=== PATIENT | male | born 1930 | race Caucasian/White ===

== ENCOUNTER 2021-03-30 07:23 | Inpatient (IN) ==
[2021-03-30 08:25] LABS: Basophils # (auto) 0.02 K/uL (0-0.2); Basophils % (auto) 0.4 %; Eosinophils # (auto) 0.03 K/uL (0-0.5); Eosinophils % (auto) 0.6 %; Hematocrit (blood only) 30.1 % (42-52); Hemoglobin 9.1 g/dL (14.0-18.0); Immature Granulocytes # (auto) 0.01 K/uL (0.00-0.02); Immature Granulocytes % (auto) 0.2 %; Lymphocytes # (auto) 0.86 K/uL (1.2-3.4); Lymphocytes % (auto) 17.7 %; Mean Corpuscular Hemoglobin 26.6 pg (25-34); Mean Corpuscular Hgb Conc 30.2 g/dL (32-36); Mean Platelet Volume 8.5 fL (7.4-10.4); Monocytes # (auto) 0.56 K/uL (0.11-0.59); Monocytes % (auto) 11.5 %; Neutrophils # (auto) 3.38 K/uL (1.4-6.5); Neutrophils % (auto) 69.6 %; Platelet Count 173 K/uL (130-400); RDW Coefficient of Variation 17.6 % (11.5-14.5); RDW Standard Deviation 56.9 fL (36.4-46.3); Red Blood Count 3.42 M/uL (4.7-6.1); White Blood Count 4.86 K/uL (4.8-10.8)
[2021-03-30 08:34] LABS: INR 1.8 (0.9-1.1); Prothrombin Time 17.2 Seconds (9.0-12.0)
--- NOTE | 2021-03-30 08:37 | Emergency Department Note ---
History of Present Illness General Chief complaint: Rectal Bleed Stated complaint: RECTAL BLEEDING Time Seen by Provider: 03/30/21 07:33 History of Present Illness This 89-year-old male presents today with his , for evaluation of a rectal bleed. Patient awoke around 4 AM and had dark bowel movement with bright red blood. He states he had a second bowel movement also with blood about 2 hours later. Because of this, he came to the ED. He states he has had 11 previous rectal bleeds. He states most of them require admission and observation. He states he has had colonoscopies after a few of them. All 11 admissions have been at [facility]. They recently moved to [place] in December to e closer to their daughter. Patient notes that he does have bioprosthetic heart valves x2, that are both bovine. He is sure that he receives IV antibiotics during his admissions as prophylaxis for his valves. His concurs. He otherwise states he feels fine. He denies any fevers or chills. No sweats. No chest pain or shortness of breath. He does not feel weak. No dizziness. He has remained ambulatory. There has been no abdominal trauma. He does have a history of diverticulosis. No other complaints. PCP is Dr. Damon. Home Medications Medication Instructions Recorded Confirmed Type albuterol sulfate 90 mcg/actuation 2 puff INHALATION Q4H PRN g 12/27/20 03/30/21 History aerosol inhaler calcium citrate 250 mg 1 tab PO DAILY tab 12/27/20 03/30/21 History calcium-vitamin D3 5 mcg (200 unit) tablet (Citracal Regular) furosemide 40 mg tablet 80 mg PO DAILY tab 12/27/20 03/30/21 History quinapril 40 mg tablet 20 mg PO DAILY tab 12/27/20 03/30/21 History ferrous gluconate 324 mg (38 mg 324 mg PO DAILY #90 tab 02/26/21 03/30/21 Rx iron) tablet amiodarone 200 mg tablet 200 mg PO DAILY #90 tab 03/12/21 03/30/21 Rx amlodipine 2.5 mg tablet 2.5 mg PO DAILY #90 tab 03/14/21 03/30/21 Rx warfarin 4 mg tablet 4 mg PO .COMPLEX #60 tab 03/26/21 03/30/21 Rx ascorbic acid (vitamin C) 500 mg 500 mg PO DAILY 03/30/21 03/30/21 History tablet (Vitamin C) Allergies Allergy/AdvReac Type Severity Reaction Status Date / Time codeine Allergy Unknown Verified 02/25/21 13:21 Penicillins Allergy Unknown Verified 02/25/21 13:21 phytonadione (vitamin K1) Allergy Verified 02/25/21 13:21 Past Med/Surg History Medical History Anemia Atonic bladder Atonic neurogenic bladder Atrial fibrillation, permanent BPH loc w urin obs/LUTS Cardiomyopathy Chronic combined systolic and diastolic congestive heart failure Complete heart block Edema, unspecified Foot-drop History of diverticulitis History of GI bleed History of nephrolithiasis Hypertension ICD (implantable cardioverter-defibrillator) in place LBBB (left bundle branch block) Lumbar spinal stenosis Lymphedema Melanoma Needs future eval by Dermatology for yearly screen Osteoarthritis Pulmonary fibrosis, postinflammatory Thrombus of left atrial appendage Venous insufficiency Ventricular tachycardia Surgical History H/O hernia repair History of cholecystectomy History of lithotripsy Hx of total knee arthroplasty 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 Family History Mother Cancer Social History Smoking Status: Never smoker Second Hand Exposure: No; Hx Alcohol Use: No Hx Substance Use: No Preferred Language: Hong Konger Communication Ability: Effective Visual Impairment: Limited Hearing Ability: Hard of Hearing 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 Required: No Beliefs That Will Affect Care: None marital status: Current Living Situation: Spouse current occupational status: retired How many Children do You have: 3 Other Information That Helps Us Care for You: No Feels Safe at Home: Yes Safety Concerns: Feels Safe At This Time Childhood Exposure to Second-Hand Smoke: Yes caffeine: No Dental Care, Regularly: Yes Physical Activity Frequency: Does not Exercise Seatbelt Use: always Sunscreen Use: Yes Do you think of yourself as: straight/heterosexual Assistive Devices: Walker Review of Systems A total of 10 systems reviewed and were otherwise negative Physical Exam Vital Signs Vital Signs - 24 hr 03/30/21 07:27 03/30/21 08:16 03/30/21 08:30 Temperature 36.5 C Temperature Source Temporal Artery Scan Pulse Rate 79 70 Pulse Rate [Apical] 70 Pulse Rate from SpO2 Sensor 70 Pulse Rhythm Regular Pulse Strength Normal Respiratory Rate 18 24 17 Respiratory Effort / Characteristics Non-Labored Spontaneous Respiratory Depth Normal Respiratory Pattern Regular Blood Pressure 106/60 107/63 Blood Pressure [Left Arm] 112/70 Blood Pressure Mean 75 77 Blood Pressure Mean [Left Arm] 84 Pulse Oximetry 99 98 96 Oxygen Delivery Method Room Air Room Air Room Air Sepsis Recent Fever Within 48 Hours No Sepsis New/Unexplained Change in Mental Status No Sepsis Action Taken by Nursing No Action Required 03/30/21 09:00 03/30/21 09:30 03/30/21 10:00 Temperature Temperature Source Pulse Rate 70 70 70 Pulse Rate [Apical] Pulse Rate from SpO2 Sensor 69 68 70 Pulse Rhythm Pulse Strength Respiratory Rate 14 15 15 Respiratory Effort / Characteristics Respiratory Depth Respiratory Pattern Blood Pressure 98/64 L 120/71 117/72 Blood Pressure [Left Arm] Blood Pressure Mean 75 87 87 Blood Pressure Mean [Left Arm] Pulse Oximetry 97 100 97 Oxygen Delivery Method Room Air Room Air Room Air Sepsis Recent Fever Within 48 Hours Sepsis New/Unexplained Change in Mental Status Sepsis Action Taken by Nursing 03/30/21 10:30 03/30/21 11:31 03/30/21 12:00 Temperature Temperature Source Pulse Rate 73 70 70 Pulse Rate [Apical] Pulse Rate from SpO2 Sensor 76 70 70 Pulse Rhythm Pulse Strength Respiratory Rate 22 19 15 Respiratory Effort / Characteristics Respiratory Depth Respiratory Pattern Blood Pressure 125/106 H 118/66 Blood Pressure [Left Arm] Blood Pressure Mean 112 83 Blood Pressure Mean [Left Arm] Pulse Oximetry 97 100 97 Oxygen Delivery Method Room Air Room Air Room Air Sepsis Recent Fever Within 48 Hours Sepsis New/Unexplained Change in Mental Status Sepsis Action Taken by Nursing General: Well-developed, well-nourished, elderly white male, in no acute distress. Sitting on the bed. Alert and oriented. Conversive. He is not hypotensive or tachycardic. Skin: Warm and dry with fair turgor. No rashes. No ecchymosis or erythema. HEENT: Normocephalic atraumatic. Eyes PERRLA, EOMI. No conjunctiva or scleral injection. Nares patent bilaterally without turbinate enlargement. No significant drainage. No epistaxis. Heart: Heart RRR. No GR. Systolic murmur is noted. Peripheral pulses are 2+. Lungs: Lungs are clear to auscultation. No crackles rhonchi or wheezing. Good air movement. The patient is able to take a deep breath. Abdomen: Abdomen was inspected, auscultated, and palpated. Bowel sounds present x 4. Soft, nontender to palpation. No hepato-splenomegaly. No masses noted. No rebound. Musculoskeletal: Gross motor function of the upper and lower extremities is intact and unremarkable. Neurologic: Gross sensation is intact across the upper and lower extremities by soft touch. Rectal: Rectum has no visible external hemorrhoids. There is bloody stool present. Digital rectal exam reveals reasonably good sphincter tone. No palpable masses. Stool was heme positive. Course Administered Medications Amiodarone HCl (Amiodarone 200 Mg Tab) 200 mg PO DAILY CHERYL Stop: 04/30/21 08:59 Last Admin: 03/31/21 08:16 Dose: 200 mg Documented by: [id number] Amlodipine Besylate (Amlodipine Besylate 5 Mg Tab) 2.5 mg PO DAILY CHERYL Stop: 04/30/21 08:59 Last Admin: 03/31/21 08:14 Dose: 2.5 mg Documented by: [id number] Ascorbic Acid (Ascorbic Acid 500 Mg Tab) 500 mg PO DAILY CHERYL Stop: 04/30/21 08:59 Last Admin: 03/31/21 08:16 Dose: 500 mg Documented by: [id number] Ciprofloxacin (Ciprofloxacin 500 Mg Tab) 500 mg PO BID CHERYL Stop: 04/09/21 20:59 Last Admin: 03/31/21 08:13 Dose: 500 mg Documented by: [id number] Admin: 03/30/21 20:47 Dose: 500 mg Documented by: [id number] Enalapril Maleate (Enalapril Maleate 10 Mg Tab) 20 mg PO DAILY CHERYL Stop: 04/30/21 08:59 Last Admin: 03/31/21 08:15 Dose: 20 mg Documented by: [id number] Ferrous Gluconate (Ferrous Gluconate 324 Mg Tab) 324 mg PO DAILY CHERYL Stop: 04/30/21 08:59 Last Admin: 03/31/21 08:14 Dose: 324 mg Documented by: [id number] Furosemide (Furosemide 80 Mg Tab) 80 mg PO DAILY CHERYL Stop: 04/30/21 08:59 Last Admin: 03/31/21 08:13 Dose: 80 mg Documented by: [id number] Metronidazole (Metronidazole 500 Mg Tab) 500 mg PO TID CHERYL Stop: 04/09/21 20:59 Last Admin: 03/31/21 14:27 Dose: 500 mg Documented by: [id number] Admin: 03/31/21 08:12 Dose: 500 mg Documented by: [id number] Admin: 03/30/21 20:47 Dose: 500 mg Documented by: [id number] Multivitamins/Minerals (Calcium 600mg + Vit D 400 Iu Tab) 1 tab PO DAILY CHERYL Stop: 04/30/21 08:59 Last Admin: 03/31/21 08:17 Dose: 1 tab Documented by: [id number] Medical Decision Making Differential Diagnosis Upper GI bleed, lower GI bleed, hemorrhoids, diverticulitis, colitis Medical Records Attestation: I reviewed the patient's medical records. Records from [facility] were obtained from his last admission. They were thoroughly reviewed. Patient did receive IV Protonix at that time. He did not receive any IV antibiotics. Home Medications Current Medication List: was personally reviewed by me Laboratory Data CBC, chemistry panel, INR, type and screen, and COVID test were obtained. H&H are 9.1 and 30.1. Normal white count at 4.86. INR is 1.8. Blood type is O+ with antibody screen negative chemistry panel was otherwise unremarkable. Covid test is negative. Result diagrams: 03/31/21 12:24 03/31/21 05:56 Lab Results 03/30/21 03/30/21 03/30/21 Range/Units 08:12 08:12 08:12 WBC 4.86 (4.8-10.8) K/uL RBC 3.42 L (4.7-6.1) M/uL Hgb 9.1 L (14.0-18.0) g/dL Hct 30.1 L (42-52) % MCV 88.0 (80-100) fL MCH 26.6 (25-34) pg MCHC 30.2 L (32-36) g/dL RDW Std Deviation 56.9 H (36.4-46.3) fL RDW Coeff of Jeb 17.6 H (11.5-14.5) % Plt Count 173 (130-400) K/uL MPV 8.5 (7.4-10.4) fL Immature Gran % (Auto) 0.2 % Neut % (Auto) 69.6 % Lymph % (Auto) 17.7 % Dupage % (Auto) 11.5 % Eos % (Auto) 0.6 % Baso % (Auto) 0.4 % Neut # (Auto) 3.38 (1.4-6.5) K/uL Lymph # (Auto) 0.86 L (1.2-3.4) K/uL Dupage # (Auto) 0.56 (0.11-0.59) K/uL Eos # (Auto) 0.03 (0-0.5) K/uL Baso # (Auto) 0.02 (0-0.2) K/uL Immature Gran # (Auto) 0.01 (0.00-0.02) K/uL PT 17.2 H (9.0-12.0) Seconds INR 1.8 H (0.9-1.1) Sodium (136-145) mmol/L Potassium (3.5-5.1) mmol/L Chloride (98-107) mmol/L Carbon Dioxide (21-32) mmol/L Anion Gap (3-11) BUN (6-23) mg/dl Creatinine (0.6-1.4) mg/dl Est Cr Clr Drug Dosing ml/min Est GFR ( Amer) ml/min Est GFR (Non-Af Amer) ml/min BUN/Creatinine Ratio (10-20) Glucose (70-99(Fasting)) mg/dl Calcium (8.5-10.1) mg/dl Total Bilirubin (0.2-1.0) mg/dl AST (13-39) U/L ALT (7-52) U/L Alkaline Phosphatase (34-104) U/L Total Protein (6.0-8.3) gm/dl Albumin (3.4-5.0) gm/dl Globulin (2.5-4.0) gm/dl Albumin/Globulin Ratio (0.9-2) SARS-CoV-2, RNA, NAAT (NEGATIVE) Blood Type O Positive Antibody Screen NEGATIVE Crossmatch See Detail 03/30/21 03/30/21 Range/Units 08:12 10:14 WBC (4.8-10.8) K/uL RBC (4.7-6.1) M/uL Hgb (14.0-18.0) g/dL Hct (42-52) % MCV (80-100) fL MCH (25-34) pg MCHC (32-36) g/dL RDW Std Deviation (36.4-46.3) fL RDW Coeff of Jeb (11.5-14.5) % Plt Count (130-400) K/uL MPV (7.4-10.4) fL Immature Gran % (Auto) % Neut % (Auto) % Lymph % (Auto) % Dupage % (Auto) % Eos % (Auto) % Baso % (Auto) % Neut # (Auto) (1.4-6.5) K/uL Lymph # (Auto) (1.2-3.4) K/uL Dupage # (Auto) (0.11-0.59) K/uL Eos # (Auto) (0-0.5) K/uL Baso # (Auto) (0-0.2) K/uL Immature Gran # (Auto) (0.00-0.02) K/uL PT (9.0-12.0) Seconds INR (0.9-1.1) Sodium 137 (136-145) mmol/L Potassium 4.2 (3.5-5.1) mmol/L Chloride 104 (98-107) mmol/L Carbon Dioxide 29 (21-32) mmol/L Anion Gap 4 (3-11) BUN 22 (6-23) mg/dl Creatinine 1.18 (0.6-1.4) mg/dl Est Cr Clr Drug Dosing 41.4 ml/min Est GFR ( Amer) 63.5 ml/min Est GFR (Non-Af Amer) 54.8 ml/min BUN/Creatinine Ratio 18.6 (10-20) Glucose 102 H (70-99(Fasting)) mg/dl Calcium 8.4 L (8.5-10.1) mg/dl Total Bilirubin 0.5 (0.2-1.0) mg/dl AST 26 (13-39) U/L ALT 19 (7-52) U/L Alkaline Phosphatase 103 (34-104) U/L Total Protein 6.4 (6.0-8.3) gm/dl Albumin 3.5 (3.4-5.0) gm/dl Globulin 2.9 (2.5-4.0) gm/dl Albumin/Globulin Ratio 1.2 (0.9-2) SARS-CoV-2, RNA, NAAT NEGATIVE (NEGATIVE) Blood Type Antibody Screen Crossmatch ECG Data Additional Comments: EKG obtained today shows a ventricular paced rhythm with a rate of 71. Blood Pressure Blood Pressure Findings: Normal blood pressure MDM Narrative Patient was evaluated in room A11. Conservative care measures were discussed. IV was established. Labs were obtained. He was placed on a cook supervisor and remained in a sinus rhythm with a rate around 71. EKG was also obtained. Lab values showed a mild anemia with an H&H of 9 and 30. Because of the patient's use of Coumadin, and his past history, hospitalist service was consulted for possible admission. Please see that dictation for final management. Patient did remain stable while in the ED. He had no hypotension or tachycardia. He remained pleasant and conversive. He had no further episodes of hematochezia. Patient was seen in conjunction with Dr. Enciso, who also evaluated the patient and concurred with today's diagnosis and treatment plan. Impression & Plan Hematochezia Patient is therapeutic on his Coumadin with an INR of 1.8. He had no further bowel movements in the ED. He did remain stable. I did receive records from [facility] regarding his last admission. Patient did not receive any IV antibiotics at that point. He did receive IV Protonix. When this was discussed with he and his , it seemed they were confused about the antibiotics. He did receive IV antibiotic prophylaxis prior to his right total knee surgery, which would have been appropriate. Risk of endocarditis from a bleeding diverticula would be quite low, and it does not appear that he was prophylaxed for those type of admissions. A literature search did not provide any results regarding necessity for prophylaxis regarding GI bleed. He will be brought in for admission to be sure that his H&H do not drop precipitously. Discharge Plan Visit Data Chief Complaint: Rectal Bleed Stated Complaint: RECTAL BLEEDING ED Provider: Chele Enciso ED Midlevel Provider: Timo Diamond Discharge Problem: Hematochezia Patient Disposition: Admitted As Inpatient Discharge Instructions Interventions: ED Discharge Assessment Last Done: 03/30/21 12:30
[2021-03-30 08:46] LABS: Albumin Globulin Ratio 1.2 (0.9-2); Albumin Level 3.5 gm/dl (3.4-5.0); BUN Creatinine Ratio 18.6 (10-20); Bilirubin,Total 0.5 mg/dl (0.2-1.0); Calcium 8.4 mg/dl (8.5-10.1); Creatinine Clr Calc Pharmacy 41.4 ml/min; Est GFR (African American) 63.5 ml/min; Est GFR (Non-African American) 54.8 ml/min; Globulin 2.9 gm/dl (2.5-4.0); Potassium 4.2 mmol/L (3.5-5.1); Total Protein 6.4 gm/dl (6.0-8.3)
--- NOTE | 2021-03-30 09:48 | History & Physical Report ---
Date of Service March 30, 2021 Assessment & Plan (1) History of GI bleed: Plan: Patient reportedly has a history of previous GI bleeds described by the patient is rectal bleeds requiring treatment at [facility]. Patient presented today with 2 black bloody bowel movements. Patient is chronically anticoagulated with Coumadin therapy due to atrial fibrillation. His INR on presentation is 1.8. At the time of presentation he is not hypotensive nor tachycardic. Coagulation is held at this time not reversing this and was becomes unstable with his hemodynamics Following hemoglobin trends will transfuse as needed. Discussion of antibiotic use given the fact that if he is having a lower GI bleed likely could have exposure to bowel hardik will use oral Augmentin at this time Stool studies will be sent to rule out infectious etiologies (2) Atrial fibrillation, permanent: Plan: At the time of presentation he is in a ventricularly paced rhythm likely with underlying atrial fib is a pacer ICD in place due to cardiomyopathy he is chronically on amiodarone 200 mg a day (3) Hypertension: Plan: For the patient's hypertension he typically takes quinapril will probably need to substitute a pharmacy equivalent MARYLU inhibitor, amlodipine 2.5 and Lasix 80. Patient took all of his daily medicines morning of presentation his hemodynamics are stable at this time we will continue (4) Chronic combined systolic and diastolic congestive heart failure: Plan: Patient appears euvolemic at this time maintaining his antihypertensives and diuretic medications (5) Pulmonary fibrosis, postinflammatory: Plan: Patient is on room air with appropriate oxygen saturations (6) BPH loc w urin obs/LUTS: Plan: Patient frequently self caths we will continue this process while in the hospital (7) DVT prophylaxis: Plan: Chemoprophylaxis is contraindicated given his rectal bleeding will use SCDs History of Present Illness Primary Care Provider: Yazan Damon, DO This 89-year-old male presents today with his , for evaluation of a rectal bleed. Patient awoke around 4 AM and had a bowel movement with bright red blood. He states he had a second bowel movement about 2 hours later. Because of this, he came to the ED. He states he has had 11 previous rectal bleeds. He states most of them require admission and observation. He states he has had colonoscopies after a few of them. All [address] [facility]. They recently moved to [place] in December to be closer to their daughter. PCP is Dr. Damon. Patient's bowel movements are usually without pain but they are more watery or liquid. The last few admissions he has had in the [facility] did not require any interventional studies and were self-limiting Allergies Allergy/AdvReac Type Severity Reaction Status Date / Time codeine Allergy Unknown Verified 02/25/21 13:21 Penicillins Allergy Unknown Verified 02/25/21 13:21 phytonadione (vitamin K1) Allergy Verified 02/25/21 13:21 Home Medications Medication Instructions Recorded Confirmed Type albuterol sulfate 90 mcg/actuation 2 puff INHALATION Q4H PRN g 12/27/20 03/30/21 History aerosol inhaler calcium citrate 250 mg 1 tab PO DAILY tab 12/27/20 03/30/21 History calcium-vitamin D3 5 mcg (200 unit) tablet (Citracal Regular) furosemide 40 mg tablet 80 mg PO DAILY tab 12/27/20 03/30/21 History quinapril 40 mg tablet 20 mg PO DAILY tab 12/27/20 03/30/21 History ferrous gluconate 324 mg (38 mg 324 mg PO DAILY #90 tab 02/26/21 03/30/21 Rx iron) tablet amiodarone 200 mg tablet 200 mg PO DAILY #90 tab 03/12/21 03/30/21 Rx amlodipine 2.5 mg tablet 2.5 mg PO DAILY #90 tab 03/14/21 03/30/21 Rx warfarin 4 mg tablet 4 mg PO .COMPLEX #60 tab 03/26/21 03/30/21 Rx ascorbic acid (vitamin C) 500 mg 500 mg PO DAILY 03/30/21 03/30/21 History tablet (Vitamin C) Past Med/Surg History Medical History Anemia Atonic bladder Atonic neurogenic bladder Atrial fibrillation, permanent BPH loc w urin obs/LUTS Cardiomyopathy Chronic combined systolic and diastolic congestive heart failure Complete heart block Edema, unspecified Foot-drop History of diverticulitis History of GI bleed History of nephrolithiasis Hypertension ICD (implantable cardioverter-defibrillator) in place LBBB (left bundle branch block) Lumbar spinal stenosis Lymphedema Melanoma Needs future eval by Dermatology for yearly screen Osteoarthritis Pulmonary fibrosis, postinflammatory Thrombus of left atrial appendage Venous insufficiency Ventricular tachycardia Surgical History H/O hernia repair History of cholecystectomy History of lithotripsy Hx of total knee arthroplasty 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 Family History Mother Cancer Social History Smoking Status: Never smoker Second Hand Exposure: No; Hx Alcohol Use: Yes Alcohol type: hard liquor Alcohol Intake Frequency: Monthly or Less Hx Substance Use: No Preferred Language: Trinidadian Visual Impairment: Limited Hearing Ability: Hard of Hearing Applications Engineer Required: Yes and No marital status: Current Living Situation: Spouse current occupational status: retired Feels Safe at Home: Yes Childhood Exposure to Second-Hand Smoke: Yes caffeine: No Dental Care, Regularly: Yes Physical Activity Frequency: Does not Exercise Seatbelt Use: always Sunscreen Use: Yes Do you think of yourself as: straight/heterosexual Review of Systems Review of Systems: Mild distress and fatigue no headache, no visual changes no speech or swallowing issues no chest pain, pressure or palpitations no shortness of breath, cough or wheezes no abdominal pain, nausea or vomiting, watery bright red blood per rectum no dysuria, hematuria or frequency no focal joint pain or swelling no back pain, CVA tenderness or radicular pain no bruising, bleeding or rashes no focal signs of weakness or numbness or altered sensation no complaints of anxiety or depression.. Physical Exam Physical Exam: The patient appeared well nourished and normally developed. Vital signs as documented. Head exam is normocephalic atraumatic Neck is without JVD, thyromegaly, or carotid bruits. Lungs are clear to auscultation, no focal loss of breath sounds Cardiac exam, Rhythm is regular.. Systolic murmur is heard at the base Abdominal exam reveals normal bowel sounds, soft non tender, no masses Extremities are nonedematous and both pedal pulses are present Neurologic exam is alert and oriented, no focal loss of strength or sensation Skin is without bruises or rashes Psychologically is without concerns for anxiety or depression.. Results & Data Results & Data ([facility]) Vital Signs (Past 12 Hours) Vital Signs Temp Pulse Pulse Resp BP BP Pulse Ox 03/30/21 09:30 70 15 120/71 100 03/30/21 09:00 70 14 98/64 L 97 03/30/21 08:30 70 17 107/63 96 03/30/21 08:16 70 24 112/70 98 03/30/21 07:27 97.7 F 79 18 106/60 99 PG Care Time/CCT Total # of Minutes Spent Total Time Spent with Patient: Total time spent is greater than 50% in coordination of care (as documented) at patient's floor/unit and/or counseling patient: Coding Level of Care Code 57427 Initial Inpt Care Lvl 3 Diagnoses Atrial fibrillation, permanent I48.21 Hypertension I10 Chronic combined systolic and diastolic congestive heart failure I50.42 Pulmonary fibrosis, postinflammatory J84.10 BPH loc w urin obs/LUTS N40.1 History of GI bleed Z87.19 DVT prophylaxis Z29.9
--- NOTE | 2021-03-30 11:33 | Electrocardiogram Report ---
Test Reason : Blood Pressure : / mmHG Vent. Rate : 071 BPM Atrial Rate : 077 BPM P-R Int : 000 ms QRS Dur : 196 ms QT Int : 490 ms P-R-T Axes : 000 -40 138 degrees QTc Int : 532 ms Ventricular-paced rhythm Abnormal ECG No previous ECGs available Confirmed by Aryan Ordoñez ([id number]) on 03/30/2021 11:33:09 AM Referred By: REFERRED SELF Confirmed By:Aryan Ordoñez
--- NOTE | 2021-03-30 11:44 | Emergency Department Note ---
ED Visit Note Patient presents with rectal bleeding. Exam is unremarkable with exception of guaiac positive stools. I have personally seen and evaluated the patient with the physician public aid eligibility assistant. I agree with the diagnostic/management decisions and have personally been involved in these decisions and agree with the diagnosis. .
[2021-03-30] MEDS ORDERED: ONDANSETRON INJ 2 MG/ML 2 ML VIAL IV PRN (12:25)
[2021-03-30] MEDS ORDERED: ACETAMINOPHEN 325 MG TAB PO PRN (12:25)
[2021-03-30] MEDS ORDERED: ALBUTEROL HFA 8 GM INHALER INH PRN (12:25)
[2021-03-30 15:57] LABS: Adenovirus F 40/41 PCR Not Detected (NotDetected); Astrovirus PCR Not Detected (NotDetected); Campylobacter PCR Not Detected (NotDetected); Clostridium diff Toxin A/B PCR Not Detected (NotDetected); Cryptosporidium PCR Not Detected (NotDetected); Cyclospora cayetanensis PCR Not Detected (NotDetected); Entamoeba histolytica PCR Not Detected (NotDetected); Enteroaggregative E.coli(EAEC) Not Detected (NotDetected); Enteropathogenic E.coli (EPEC) Not Detected (NotDetected); Enterotoxigenic E.coli (ETEC) Not Detected (NotDetected); Giardia lamblia PCR Not Detected (NotDetected); Norovirus GI/GII PCR Not Detected (NotDetected); Plesiomonas shigelloides PCR Not Detected (NotDetected); Rotavirus A PCR Not Detected (NotDetected); Salmonella PCR Not Detected (NotDetected); Sapovirus PCR Not Detected (NotDetected); Shiga-like Toxin E.coli (STEC) Not Detected (NotDetected); Shigella/Enteroinvasive E.coli Not Detected (NotDetected); Vibrio cholerae PCR Not Detected (NotDetected); Vibrio species PCR Not Detected (NotDetected); Yersinia enterocolitica PCR Not Detected (NotDetected)
[2021-03-30 20:14] LABS: Hematocrit (blood only) 25.9 % (42-52); Hemoglobin 7.8 g/dL (14.0-18.0)
[2021-03-30] MEDS ORDERED: SODIUM CHLORIDE 0.9% 250 ML IV PRN (20:45)
[2021-03-30] MEDS: metroNIDAZOLE 500 MG TAB PO SCH (20:47)
[2021-03-30] MEDS: CIPROFLOXACIN 500 MG TAB PO SCH (20:47)
[2021-03-31 00:41] LABS: Hematocrit (blood only) 24.5 % (42-52); Hemoglobin 7.5 g/dL (14.0-18.0)
[2021-03-31] MEDS ORDERED: SODIUM CHLORIDE 0.9% 250 ML IV PRN ×2 (01:13→06:25)
[2021-03-31 06:23] LABS: Hematocrit (blood only) 25.3 % (42-52); Hemoglobin 7.8 g/dL (14.0-18.0); Mean Corpuscular Hemoglobin 26.9 pg (25-34); Mean Corpuscular Hgb Conc 30.8 g/dL (32-36); Mean Corpuscular Volume 87.2 fL (80-100); Mean Platelet Volume 8.5 fL (7.4-10.4); Platelet Count 161 K/uL (130-400); RDW Coefficient of Variation 17.2 % (11.5-14.5); RDW Standard Deviation 54.9 fL (36.4-46.3); White Blood Count 5.48 K/uL (4.8-10.8)
[2021-03-31 06:43] LABS: BUN Creatinine Ratio 21.8 (10-20); Calcium 7.6 mg/dl (8.5-10.1); Creatinine Clr Calc Pharmacy 41.1 ml/min; Est GFR (African American) 62.8 ml/min; Est GFR (Non-African American) 54.2 ml/min; Potassium 4.6 mmol/L (3.5-5.1)
[2021-03-31 06:44] LABS: INR 1.8 (0.9-1.1); Prothrombin Time 17.7 Seconds (9.0-12.0)
--- NOTE | 2021-03-31 08:08 | Hospitalist Progress Note ---
Date of Service March 31, 2021 Assessment & Plan (1) History of GI bleed: Plan: Patient reportedly has a history of previous GI bleeds described by the patient is rectal bleeds requiring treatment at [facility]. Patient presented today with 2 black bloody bowel movements. Patient is chronically anticoagulated with Coumadin therapy due to atrial fibrillation. His INR on presentation is 1.8. At the time of presentation he is not hypotensive nor tachycardic. Coagulation is held at this time not reversing this and was becomes unstable with his hemodynamics Following hemoglobin trends has received 3 units packed red blood cells has not had any hypotension with his acute blood loss anemia Discussion of antibiotic use given the fact that if he is having a lower GI bleed likely could have exposure to bowel hardik will use oral Augmentin at this time Stool studies will be sent to rule out infectious etiologies Bleeding scan ordered for the afternoon of 03/31/2021 (2) Atrial fibrillation, permanent: Plan: remains ventricularly paced rhythm likely with underlying atrial fib is a pacer ICD in place due to cardiomyopathy he is chronically on amiodarone 200 mg a day (3) Hypertension: Plan: For the patient's hypertension he typically takes quinapril will probably need to substitute a pharmacy equivalent MARYLU inhibitor, amlodipine 2.5 and Lasix 80. Patient took all of his daily medicines morning of presentation his hemodynamics are stable at this time we will continue Given the patient's heart failure which is both systolic and diastolic we will continue the diuretic therapy as we give him volume with transfusions (4) Chronic combined systolic and diastolic congestive heart failure: Plan: Patient appears euvolemic no signs of JVD or shortness of breath at this time (5) Pulmonary fibrosis, postinflammatory: Plan: Patient is on room air with appropriate oxygen saturations (6) BPH loc w urin obs/LUTS: Plan: Patient frequently self caths we will continue this process while in the hospital (7) DVT prophylaxis: Plan: Chemoprophylaxis is contraindicated given his rectal bleeding will use SCDs Plan: Updated daughter by phone as cannot with reach informed them that if he does have active bleeding may need to be considered to be transferred to tertiary center for intervention radiology and coiling Admission and Anticipated Discharge Date Admission Date: March 30, 2021 Subjective Patient having persistent bloody bowel movements more continuing through the morning hours of 03/31 he is received a total of 3 units packed red blood cells with his hemoglobin stable in the 8 g range. We are scheduling bleeding scan and his family was updated Review of Systems Review of Systems: Mild distress and fatigue no headache, no visual changes no speech or swallowing issues no chest pain, pressure or palpitations no shortness of breath, cough or wheezes no abdominal pain, nausea or vomiting, continues with watery bright red blood per rectum no dysuria, hematuria or frequency no focal joint pain or swelling no back pain, CVA tenderness or radicular pain no bruising, bleeding or rashes no focal signs of weakness or numbness or altered sensation no complaints of anxiety or depression.. Physical Exam Physical Exam: The patient appeared well nourished and normally developed. Vital signs as documented. Head exam is normocephalic atraumatic Neck is without JVD, thyromegaly, or carotid bruits. Lungs are clear to auscultation, no focal loss of breath sounds Cardiac exam, Rhythm is regular.. Systolic murmur is heard at the base Abdominal exam reveals normal bowel sounds, soft still non tender, no masses Extremities are nonedematous and both pedal pulses are present Neurologic exam is alert and oriented, no focal loss of strength or sensation Skin is without bruises or rashes Psychologically is without concerns for anxiety or depression.. Results & Data Results & Data ([facility]) Vital Signs (Past 12 Hours) Vital Signs Temp Pulse Resp BP Pulse Ox 03/31/21 08:00 97.9 F 70 131/94 98 03/31/21 04:56 98.1 F 71 12 113/68 95 03/31/21 04:48 98.1 F 72 18 107/66 95 03/31/21 03:48 98.1 F 70 18 94/56 L 96 03/31/21 03:18 98.2 F 70 16 91/55 L 96 03/31/21 03:03 98.2 F 71 18 115/76 95 03/31/21 02:45 98.1 F 73 20 104/63 97 03/31/21 00:15 98.4 F 72 18 96/54 L 97 03/31/21 00:01 98.4 F 72 20 96/54 L 97 03/30/21 23:01 97.9 F 75 18 103/56 L 98 03/30/21 22:31 98.2 F 69 20 101/65 99 02/20/22 22:16 98.4 F 70 20 97/62 L 99 03/30/21 22:00 98.2 F 74 20 92/54 L 99 PG Care Time/CCT Total # of Minutes Spent Total Time Spent with Patient: Total time spent is greater than 50% in coordination of care (as documented) at patient's floor/unit and/or counseling patient: Coding Level of Care Code 85275 Subseq Hosp Care Lvl 3 Diagnoses History of GI bleed Z87.19 Atrial fibrillation, permanent I48.21 Hypertension I10 Chronic combined systolic and diastolic congestive heart failure I50.42 Pulmonary fibrosis, postinflammatory J84.10 BPH loc w urin obs/LUTS N40.1 DVT prophylaxis Z29.9
[2021-03-31] MEDS: metroNIDAZOLE 500 MG TAB PO SCH ×3 (08:12→20:39)
[2021-03-31] MEDS: FUROSEMIDE 80 MG TAB PO SCH (08:13)
[2021-03-31] MEDS: CIPROFLOXACIN 500 MG TAB PO SCH ×2 (08:13→20:39)
[2021-03-31] MEDS: FERROUS GLUCONATE 324 MG TAB PO SCH (08:14)
[2021-03-31] MEDS: amLODIPine BESYLATE 5 MG TAB PO SCH (08:14)
[2021-03-31] MEDS: ENALAPRIL MALEATE 10 MG TAB PO SCH (08:15)
[2021-03-31] MEDS: ASCORBIC ACID 500 MG TAB PO SCH (08:16)
[2021-03-31] MEDS: AMIODARONE 200 MG TAB PO SCH (08:16)
[2021-03-31] MEDS: CALCIUM 600MG + VIT D 400 IU TAB PO SCH (08:17)
[2021-03-31 12:41] LABS: Hematocrit (blood only) 26.6 % (42-52); Hemoglobin 8.4 g/dL (14.0-18.0)
--- NOTE | 2021-03-31 17:17 | Nuclear Medicine Report ---
NM GI bleeding HISTORY: persistent hematochezia with transfusion of 3 units TECHNIQUE: Immediately following the intravenous administration of 24.3 mCi of technetium 99 M RBCS, dynamic abdominal imaging was performed for total of 90 minutes. COMPARISON STUDY: None. FINDINGS: No abnormal radiotracer uptake identified in the expected location of bowel to suggest an a ctive GI bleed. IMPRESSION: No evidence for active GI bleed. ACT 112: Negative or not required by law. Electronically signed by: Stanley Botello M.D. 03/31/2021 5:16 PM
[2021-04-01 06:40] LABS: INR 1.7 (0.9-1.1); Prothrombin Time 16.6 Seconds (9.0-12.0)
[2021-04-01 06:44] LABS: Hematocrit (blood only) 24.4 % (42-52); Hemoglobin 7.6 g/dL (14.0-18.0); Mean Corpuscular Hemoglobin 27.2 pg (25-34); Mean Corpuscular Hgb Conc 31.1 g/dL (32-36); Mean Corpuscular Volume 87.5 fL (80-100); Platelet Count 156 K/uL (130-400); Red Blood Count 2.79 M/uL (4.7-6.1); White Blood Count 6.03 K/uL (4.8-10.8)
[2021-04-01 06:53] LABS: Calcium 7.8 mg/dl (8.5-10.1); Creatinine Clr Calc Pharmacy 34.9 ml/min; Est GFR (African American) 51.6 ml/min; Est GFR (Non-African American) 44.5 ml/min; Potassium 4.1 mmol/L (3.5-5.1)
[2021-04-01] MEDS: amLODIPine BESYLATE 5 MG TAB PO SCH (08:33)
[2021-04-01] MEDS: FUROSEMIDE 80 MG TAB PO SCH (08:34)
[2021-04-01] MEDS: ASCORBIC ACID 500 MG TAB PO SCH (08:35)
[2021-04-01] MEDS: ENALAPRIL MALEATE 10 MG TAB PO SCH (08:35)
[2021-04-01] MEDS: CIPROFLOXACIN 500 MG TAB PO SCH ×2 (08:35→19:36)
[2021-04-01] MEDS: metroNIDAZOLE 500 MG TAB PO SCH ×3 (08:35→19:35)
[2021-04-01] MEDS: CALCIUM 600MG + VIT D 400 IU TAB PO SCH (08:36)
[2021-04-01] MEDS: AMIODARONE 200 MG TAB PO SCH (08:36)
[2021-04-01] MEDS: FERROUS GLUCONATE 324 MG TAB PO SCH (08:36)
--- NOTE | 2021-04-01 16:15 | Hospitalist Progress Note ---
Date of Service April 01, 2021 Assessment & Plan (1) History of GI bleed: Plan: Patient reportedly has a history of previous GI bleeds described by the patient is rectal bleeds requiring treatment at [facility]. Patient presented today with 2 black bloody bowel movements. Patient is chronically anticoagulated with Coumadin therapy due to atrial fibrillation. His INR on presentation is 1.8. At the time of presentation he is not hypotensive nor tachycardic. Coagulation is held at this time not reversing this and was becomes unstable with his hemodynamics Following hemoglobin trends has received 3 units packed red blood cells has not had any hypotension with his acute blood loss anemia Discussion of antibiotic use given the fact that if he is having a lower GI bleed likely could have exposure to bowel hardik will use oral cipro/flagyl with pcn allergy at this time Stool studies will be sent to rule out infectious etiologies Bleeding scan ordered for the afternoon of 03/31/2021 was negative for active bleeding. HGb stable on 04/01, advancing diet and recheck on 04/02, if stable can consider dc (2) Atrial fibrillation, permanent: Plan: remains ventricularly paced rhythm likely with underlying atrial fib is a pacer ICD in place due to cardiomyopathy he is chronically on amiodarone 200 mg a day Coumadin is held, inr is 1.7 maybe good candidate for coumadin clinic (3) Hypertension: Plan: For the patient's hypertension he typically takes quinapril will probably need to substitute a pharmacy equivalent MARYLU inhibitor, amlodipine 2.5 and Lasix 80. Patient took all of his daily medicines morning of presentation his hemodynamics are stable at this time we will continue Given the patient's heart failure which is both systolic and diastolic we will continue the diuretic therapy as we give him volume with transfusions (4) Chronic combined systolic and diastolic congestive heart failure: Plan: Patient appears euvolemic no signs of JVD or shortness of breath at this time (5) Pulmonary fibrosis, postinflammatory: Plan: Patient is on room air with appropriate oxygen saturations (6) BPH loc w urin obs/LUTS: Plan: Patient frequently self caths we will continue this process while in the hospital (7) DVT prophylaxis: Plan: Chemoprophylaxis is contraindicated given his rectal bleeding will use SCDs Plan: Updated family at bedside Admission and Anticipated Discharge Date Admission Date: March 30, 2021 Subjective pt had a negative nuclear med bleeding scan on 03/31, having improved bowel movements and stable hgb on 04/01, will advance diet and hopes to remain stable to consider dc possibility 04/02 Review of Systems Review of Systems: Mild distress and fatigue no headache, no visual changes no speech or swallowing issues no chest pain, pressure or palpitations no shortness of breath, cough or wheezes no abdominal pain, nausea or vomiting, only blood coated Bm on 04/01 no dysuria, hematuria or frequency no focal joint pain or swelling no back pain, CVA tenderness or radicular pain no bruising, bleeding or rashes no focal signs of weakness or numbness or altered sensation no complaints of anxiety or depression.. Physical Exam Physical Exam: The patient appeared well nourished and normally developed. Vital signs as documented. Head exam is normocephalic atraumatic Neck is without JVD, thyromegaly, or carotid bruits. Lungs are clear to auscultation, no focal loss of breath sounds Cardiac exam, Rhythm is regular.. Systolic murmur is heard at the base Abdominal exam reveals normal bowel sounds, soft still non tender, no masses Extremities are nonedematous and both pedal pulses are present Neurologic exam is alert and oriented, no focal loss of strength or sensation Skin is without bruises or rashes Psychologically is without concerns for anxiety or depression.. Results & Data Results & Data ([facility]) Vital Signs (Past 12 Hours) Vital Signs Temp Pulse Pulse Resp BP Pulse Ox Pulse Ox 04/01/21 14:00 98.6 F 70 19 112/69 97 04/01/21 13:00 99 04/01/21 12:00 98.6 F 88 16 114/66 99 04/01/21 10:08 71 04/01/21 08:32 99.1 F 72 18 111/60 100 PG Care Time/CCT Total # of Minutes Spent Total Time Spent with Patient: Total time spent is greater than 50% in coordination of care (as documented) at patient's floor/unit and/or counseling patient: Coding Level of Care Code 82493 Subseq Hosp Care Lvl 2 Diagnoses History of GI bleed Z87.19 Atrial fibrillation, permanent I48.21 Hypertension I10 Chronic combined systolic and diastolic congestive heart failure I50.42 Pulmonary fibrosis, postinflammatory J84.10 BPH loc w urin obs/LUTS N40.1 DVT prophylaxis Z29.9
[2021-04-02 07:00] LABS: Hemoglobin 8.6 g/dL (14.0-18.0); Mean Corpuscular Hemoglobin 27.2 pg (25-34); Mean Corpuscular Hgb Conc 30.7 g/dL (32-36); Mean Corpuscular Volume 88.6 fL (80-100); Mean Platelet Volume 8.7 fL (7.4-10.4); Platelet Count 224 K/uL (130-400); RDW Coefficient of Variation 17.5 % (11.5-14.5); RDW Standard Deviation 56.8 fL (36.4-46.3); Red Blood Count 3.16 M/uL (4.7-6.1); White Blood Count 8.08 K/uL (4.8-10.8)
[2021-04-02 07:10] LABS: INR 1.4 (0.9-1.1); Prothrombin Time 14.2 Seconds (9.0-12.0)
[2021-04-02 07:21] LABS: BUN Creatinine Ratio 14.9 (10-20); Calcium 8.1 mg/dl (8.5-10.1); Creatinine Clr Calc Pharmacy 34.1 ml/min; Est GFR (African American) 39.7 ml/min; Est GFR (Non-African American) 34.2 ml/min; Potassium 4.1 mmol/L (3.5-5.1)
[2021-04-02] MEDS: CIPROFLOXACIN 500 MG TAB PO SCH (07:49)
[2021-04-02] MEDS: metroNIDAZOLE 500 MG TAB PO SCH (07:50)
[2021-04-02] MEDS: amLODIPine BESYLATE 5 MG TAB PO SCH (07:50)
[2021-04-02] MEDS: FERROUS GLUCONATE 324 MG TAB PO SCH (07:50)
[2021-04-02] MEDS: CALCIUM 600MG + VIT D 400 IU TAB PO SCH (07:51)
[2021-04-02] MEDS: FUROSEMIDE 80 MG TAB PO SCH (07:51)
[2021-04-02] MEDS: ASCORBIC ACID 500 MG TAB PO SCH (07:51)
[2021-04-02] MEDS: ENALAPRIL MALEATE 10 MG TAB PO SCH (07:51)
[2021-04-02] MEDS: AMIODARONE 200 MG TAB PO SCH (07:51)
--- NOTE | 2021-04-02 18:41 | Discharge Summary ---
Date of Service April 02, 2021 Admission HPI Per Admitting Provider This 89-year-old male presents today with his , for evaluation of a rectal bleed. Patient awoke around 4 AM and had a bowel movement with bright red blood. He states he had a second bowel movement about 2 hours later. Because of this, he came to the ED. He states he has had 11 previous rectal bleeds. He states most of them require admission and observation. He states he has had colonoscopies after a few of them. All 11 admissions have been at [facility]. They recently moved to [place] in December to be closer to their daughter. PCP is Dr. Damon. Patient's bowel movements are usually without pain but they are more watery or liquid. The last few admissions he has had in the [facility] did not require any interventional studies and were self-limiting Principal Diagnosis GI bleedingprobably diverticular Discharge Exam In general he is awake and alert pleasant no distress. HEENT normocephalic atraumatic mucous membranes moist. Breathing unlabored no accessory muscle use good effort. Skin shows no rashes no pallor or icterus. Neuro without focal deficits. Discharge Data Allergies Allergy/AdvReac Type Severity Reaction Status Date / Time codeine Allergy Unknown Verified 02/25/21 13:21 Penicillins Allergy Unknown Verified 02/25/21 13:21 phytonadione (vitamin K1) Allergy Verified 02/25/21 13:21 Consultations 03/30/21 09:53 Consult Health Information Management Stat Hospital Course (1) History of GI bleed: Symptoms and history most consistent with a diverticular bleedbright red blood per rectum, acute blood loss anemia requiring 3 units of transfusion, and then spontaneous resolution of bleeding. Tagged red cell scan was negative a few days ago, now he is having bowel movements that are nonbloody per both him and nursing, his vitals are stable he is walking around okay and feels up to going home. Appears safe to discharge to homediscussed the possibility/utility of outpatient colonoscopy (to discuss further with PCP), and discussed the difficulty of contrasting therapeutic goals as it relates to his anticoagulation: For his A. fib we would want him anticoagulated to prevent stroke, but for his GI bleed we would want his blood to not be thin. For now we will have him hold Coumadin for about another week or so, follow-up with PCP, and if clinically he is doing well, CBC is stablethen would resume Coumadin next week. (2) Atrial fibrillation, permanent: Rate controlled, anticoagulation temporarily heldsee above would repeat CBC and clinical evaluation next week, and if he is looking better, would resume anticoagulation then (3) Hypertension: Home on home meds (4) Chronic combined systolic and diastolic congestive heart failure: Patient appears euvolemic no signs of JVD or shortness of breath at this time (5) Pulmonary fibrosis, postinflammatory: Patient is on room air with appropriate oxygen saturations (6) BPH loc w urin obs/LUTS: Patient frequently self caths (7) DVT prophylaxis: Chemoprophylaxis is contraindicated given his rectal bleeding will use SCDs Stable for home Total Time Total Time Spent Total Time Spent (In Minutes): Greater than 30 Discharge Plan Discharge Items Patient Disposition: Home - Self-Care Reason For Visit: RECTAL BLEEDING ON COUMADIN Discharge Diagnosis: gi bleed - most likely diverticular (see below) Activity: Resume your previous activity Non-emergency contact: Primary Care Provider and [employer] Call non-emergency contact if: you have any medication questions Follow-up/Referrals: Yazan Damon DO [Primary Care Provider] - 04/10/21 11:30 am Diet: Regular Addtl Attending Provider Instructions: GI bleeding -fortunately the bleeding has stopped and things appear stable enough to safely get you home -most likely the culprit was a diverticular bleed - those kinds of bleeds tend to behave like this the most. a diverticular bleed is when a little pocket forms off the side of the colon (a diverticulum) and then it erodes into a neighboring blood vessel. this can lead to some really significant bleeding (especially when the bleeding is "amplified" by needing to be on a blood thinnenr) -generally speaking, once we are able to stop the blood thinner, your body will stop the bleeding - as happened this time -to allow your body time to heal, we would recommend that you hold off on the coumadin for another week or so - we'd ask that you see your PCP early next week. they'll check on how you're doing and whether or not you've seen any more blood, as well as check repeat blood counts (labwork - CBC) -- if everything looks reassuring, then they'll direct you to resume the coumadin next week ----the reason we generally try to get people back on blood thinners when they have afib - despite having had multiple episodes of bleeding - is that we have you on the blood thinners for coumadin to protect you from a stroke. as has been the case with you, we can generally stabilize and treat a bleed, but we can never give back /damaged brain tissue when someone has had a stroke. because of that, we usually give someone's body a few weeks to heal and then get them back on the anticoagulation (on the other hand - for your peace of mind - the risk for a stroke for you as it relates to your atrial fibrillation is about 4-5% on the year - so while it's, of course, not a zero risk to be off the coumadin for another week or so, in balancing the bleeding you just had, it's going to be a more favorable balance to hold the coumadin for another week or so before restarting it in order to give your body more time to heal) -talk w Dr Damon about the possibility of a follow up colonoscopy. generally after a bleed like this we'll have someone get a scope in a month or so in order to rule out other, non diverticular, causes of bleed like a polyp, etc -- but given how many scopes you've had, depending on what they showed, it might be something that you can forego please note the computerized medication list does not have the ability to say "stop taking it for a week" -- so in order to not mess up your med list for the future, i had to click to "continue" taking coumadin - please note that we want you to hold it for about the next week (at least until your PCP has seen you and gotten follow up labwork back) Pending Studies at Discharge: No Stand-Alone Forms: My [facility] IPICO, Smoking Cessation Medications and DC Order Prescriptions: Continued ferrous gluconate 324 mg (38 mg iron) tablet 324 mg PO DAILY Qty: 90 RF: 1 amiodarone 200 mg tablet 200 mg PO DAILY Qty: 90 RF: 3 amlodipine 2.5 mg tablet 2.5 mg PO DAILY Qty: 90 RF: 3 warfarin 4 mg tablet 4 mg PO .COMPLEX Qty: 60 RF: 11 albuterol sulfate 90 mcg/actuation HFA aerosol inhaler 2 puff inhalation Q4H PRN (Reason: Shortness Of Breath) RF: 0 calcium citrate-vitamin D3 [Citracal Regular] 250 mg-5 mcg (200 unit) tablet 1 tab PO DAILY RF: 0 furosemide 40 mg tablet 80 mg PO DAILY RF: 0 quinapril 40 mg tablet 20 mg PO DAILY RF: 0 ascorbic acid (vitamin C) [Vitamin C] 500 mg tablet 500 mg PO DAILY RF: 0 Discharge Orders: Discharge Order (Routine); Ordered 04/02/21 Ordered By: Delmar Taylor Admission Data Admit Date/Time: 03/30/21 14:15 Attending Provider: Delmar Taylor Admit Provider: Lazaro Lanza Primary Care Provider: Yazan Damon Other Interventions: Discharge Summary Assessment (RN) Last Done: 04/02/21 13:04 Coding Level of Care Code D/C DAY MANAGEMENT >30 MINS Diagnoses History of GI bleed Z87.19 Atrial fibrillation, permanent I48.21 Hypertension I10 Chronic combined systolic and diastolic congestive heart failure I50.42 Pulmonary fibrosis, postinflammatory J84.10 BPH loc w urin obs/LUTS N40.1 DVT prophylaxis Z29.9
== END 2021-04-02 14:27 | disposition home or self-care (01) | DRG 378 ==
LOC: EDINP 07:23 → ED 07:23 → 2S 12:30 → SUATTDRO 14:15 → 2S 14:15